=== PATIENT | male | born 1960 | race Caucasian/White ===

== ENCOUNTER 2019-11-22 13:00 | Emergency (ER) | payer BC ==
--- NOTE | 2019-11-22 14:02 | CR ---
[id number] RAD/RAD Chest PA or AP 1V EXAM: FRONTAL CHEST INDICATION: Chest heaviness. COMPARISON: None. DISCUSSION: Mild bibasilar atelectasis and infiltrates. Borderline heart size without evidence of edema. Possible apical predominant emphysema. Sternotomy. IMPRESSION: 1. Mild bibasilar infiltrates and atelectasis. Wilber Bradford MD 11/22/19 1400 Thank you for allowing us to participate in the care of your patient.
[2019-11-22 14:14] LABS: CHLORIDE,CL 108 mmol/L (98-115); SODIUM,NA 146 mmol/L (136-145)
--- NOTE | 2019-11-22 14:16 | EDM.PDOC ---
ED HPI GENERAL MEDICAL PROBLEM - General Chief Complaint: Chest Pain Stated Complaint: CHEST PAIN, SHORT OF BREATH Time Seen by Provider: 11/22/19 13:15 Source of Information: Reports: Patient History Limitations: Reports: No Limitations - History of Present Illness INITIAL COMMENTS - FREE TEXT/NARRATIVE: Patient presents with heaviness in his chest and feels like when he has A Fib or tachycardia. This started about 1130. In August he had open heart surgery for Aortic valve replacement and was told his heart and other vessels looked good at that time. No history of [place] but does have history of A Fib/RVR on a few occasions and has had cardioversions a few times (both chemical and synchronized). Recently while he was in [place] for a couple months, he saw a doctor who told him to just live with it until he came back to [place]. He started him on Eliquis then was switched to warfarin. His INR is still being checked weekly to get stabilized. - Related Data Allergies Allergy/AdvReac Type Severity Reaction Status Date / Time No Known Drug Allergies Allergy Cannot Verified 11/22/19 13:45 Remember Home Meds: Home Meds Amiodarone [Cordarone] 200 mg PO DAILY 11/22/19 [History] Amoxicillin 2,000 mg PO ASDIRECTED 11/22/19 [History] Aspirin [Aspirin EC] 81 mg PO DAILY 11/22/19 [History] Metoprolol Succinate 25 mg PO DAILY 11/22/19 [History] Sacubitril/Valsartan [Entresto 49 mg-51 mg Tablet] 1 tab PO BID 11/22/19 [History] Vitamin B Complex 1 cap PO DAILY 11/22/19 [History] Warfarin [Coumadin] 5 mg PO SUTUWETHFRSA 11/22/19 [History] ED ROS GENERAL - Review of Systems Review Of Systems: See Below Constitutional: Reports: Diaphoresis. Denies: Fever, Chills, Malaise, Weakness Respiratory: Denies: Shortness of Breath, Cough Cardiovascular: Reports: Chest Pain (heaviness for about 20 minutes that resolved quickly after ER arrival without treatment.). Denies: Lightheadedness, Syncope GI/Abdominal: Denies: Abdominal Pain, Vomiting : Reports: No Symptoms Musculoskeletal: Denies: Neck Pain, Shoulder Pain, Arm Pain, Back Pain, Hand Pain Skin: Reports: Diaphoresis. Denies: Cyanosis, Jaundice, Mottled, Pallor Neurological: Denies: Confusion, Dizziness, Headache, Seizure, Syncope, Trouble Speaking, Difficulty Walking Psychiatric: Denies: Agitation, Anxiety, Confusion ED EXAM, GENERAL - Physical Exam Exam: See Below Exam Limited By: No Limitations General Appearance: Alert, WD/WN, No Apparent Distress Eye Exam: Bilateral Eye: EOMI, Normal Inspection, PERRL Ears: Normal External Exam, Hearing Grossly Normal Nose: Normal Inspection, No Blood Throat/Mouth: Normal Inspection, Normal Lips, Normal Voice, No Airway Compromise Head: Atraumatic, Normocephalic Neck: Normal Inspection, Full Range of Motion Respiratory/Chest: No Respiratory Distress, Crackles (right base but cleared after several deep breaths). No: Rhonchi, Wheezing, Stridor Cardiovascular: Regular Rate, Rhythm (Initially was tachy with IIR but at 1330 spontaneously converted to NSR at 72 HR, while I was visiting with him.) GI/Abdominal: Normal Bowel Sounds, Soft, Non-Tender, No Organomegaly Back Exam: Normal Inspection, Full Range of Motion. No: CVA Tenderness (L), CVA Tenderness (R) Extremities: Normal Inspection, Normal Range of Motion Neurological: Alert, Oriented, Normal Cognition, No Motor/Sensory Deficits Psychiatric: Normal Affect, Normal Mood Skin Exam: Warm, Dry, Intact, Normal Color, No Rash Course - Vital Signs Last Recorded V/S: Last Vital Signs Temp 95.4 F L 11/22/19 13:20 Pulse 131 H 11/22/19 13:20 Resp 17 11/22/19 13:20 BP 129/62 11/22/19 13:20 Pulse Ox 99 11/22/19 13:20 - Orders/Labs/Meds Orders: Active Orders 24 hr Category Date Time Status EKG Documentation Completion [RC] ASDIRECTED Care 11/22/19 13:29 Active EKG Documentation Completion [RC] ASDIRECTED Care 11/22/19 14:20 Active EKG 12 Lead [EK] Stat Ther 11/22/19 13:28 Ordered EKG 12 Lead [EK] Stat Ther 11/22/19 14:17 Ordered Labs: Laboratory Tests 11/22/19 11/22/19 11/22/19 Range/Units 13:35 13:35 13:35 WBC 11.25 H (5.00-10.00) 10^3/uL RBC 4.86 (4.50-6.00) 10^6/uL Hgb 13.9 (13.0-17.0) g/dL Hct 44.3 (40.0-52.0) % MCV 91.2 (82.0-92.0) fL MCH 28.6 (27.0-31.0) pg MCHC 31.4 L (32.0-36.0) g/dL RDW 16.1 H (11.5-14.5) % Plt Count 216 (150-400) 10^3/uL MPV 9.9 (7.4-10.4) fL Immature Gran % (Auto) 0.1 (0.0-5.0) % Neut % (Auto) 70.6 H (50.0-70.0) % Lymph % (Auto) 21.6 (20.0-40.0) % [place] % (Auto) 6.1 (2.0-8.0) % Eos % (Auto) 1.2 (1.0-3.0) % Baso % (Auto) 0.4 (0.0-1.0) % Neut # (Auto) 7.95 H (2.50-7.00) 10^3/uL Lymph # (Auto) 2.43 (1.00-4.00) 10^3/uL [place] # (Auto) 0.69 (0.10-0.80) 10^3/uL Eos # (Auto) 0.13 (0.10-0.30) 10^3/uL Baso # (Auto) 0.04 (0.00-0.10) 10^3/uL Immature Gran # (Auto) 0.01 (0.00-0.50) 10^3/uL PT 12.1 H (9.2-11.2) SEC INR 1.2 H (0.9-1.1) Sodium 146 H (136-145) mmol/L Potassium 4.2 (3.3-5.3) mmol/L Chloride 108 (98-115) mmol/L Carbon Dioxide 23.2 (21.0-32.0) mmol/L Anion Gap 19.0 H (5-15) mmol/L BUN 12 (6-25) mg/dL Creatinine 1.11 (0.51-1.17) mg/dL Est Cr Clr Drug Dosing 73.99 mL/min Estimated GFR (MDRD) > 60 mL/min Glucose 70 L (75 - 99) mg/dL Calcium 9.0 (8.7-10.3) mg/dL Troponin I 0.04 (0.00-0.070) ng/mL 11/22/19 Range/Units 16:55 WBC (5.00-10.00) 10^3/uL RBC (4.50-6.00) 10^6/uL Hgb (13.0-17.0) g/dL Hct (40.0-52.0) % MCV (82.0-92.0) fL MCH (27.0-31.0) pg MCHC (32.0-36.0) g/dL RDW (11.5-14.5) % Plt Count (150-400) 10^3/uL MPV (7.4-10.4) fL Immature Gran % (Auto) (0.0-5.0) % Neut % (Auto) (50.0-70.0) % Lymph % (Auto) (20.0-40.0) % [place] % (Auto) (2.0-8.0) % Eos % (Auto) (1.0-3.0) % Baso % (Auto) (0.0-1.0) % Neut # (Auto) (2.50-7.00) 10^3/uL Lymph # (Auto) (1.00-4.00) 10^3/uL [place] # (Auto) (0.10-0.80) 10^3/uL Eos # (Auto) (0.10-0.30) 10^3/uL Baso # (Auto) (0.00-0.10) 10^3/uL Immature Gran # (Auto) (0.00-0.50) 10^3/uL PT (9.2-11.2) SEC INR (0.9-1.1) Sodium (136-145) mmol/L Potassium (3.3-5.3) mmol/L Chloride (98-115) mmol/L Carbon Dioxide (21.0-32.0) mmol/L Anion Gap (5-15) mmol/L BUN (6-25) mg/dL Creatinine (0.51-1.17) mg/dL Est Cr Clr Drug Dosing mL/min Estimated GFR (MDRD) mL/min Glucose (75 - 99) mg/dL Calcium (8.7-10.3) mg/dL Troponin I 0.06 (0.00-0.070) ng/mL Meds: Medications Discontinued Medications Generic Name Dose Route Start Last Admin Trade Name Sabino PRN Reason Stop Dose Admin Cefdinir 900 mg 11/22/19 17:59 Omnicef PO 11/22/19 18:00 ONETIME ONE Ceftriaxone Sodium 1 gm 11/22/19 14:36 11/22/19 14:50 Rocephin IVPUSH 11/22/19 14:37 1 gm ONETIME ONE Administration - Re-Assessments/Exams Free Text/Narrative Re-Assessment/Exam: 11/22/19 14:48 First EKG showed A Fib with RVR. We noticed his rate and rhythm changed on the monitor so rechecked EKG which was NSR. HR in the 70's. This has continued on monitor for over an hour now. Trop is 0.04 so will recheck that. Patient is feeling completely normal now and is okay with waiting for recheck of troponin. CXR showed small infiltrates bilat bases so will give rocephin and treat for CAP. He says he has had pneumonia three times before but most recent was 15 years ago. 11/22/19 18:00 Second troponin is 0.06 which is higher than the first but still in normal range. We discussed that this could possibly go up a bit more with a few more hours but is most likely a result of the strain from the prolonged rapid heart rate. He has been completely asymptomatic for 4.5 hours now. He wants to go home and return if any worsening. He has an appointment scheduled with his PCP Sunday morning so will follow up then. I am sending him home with Cefdinir sufficient to cover until that visit and it can be continued via his PCP then. Pt discharged to home in stable condition. Departure - Departure Time of Disposition: 17:52 Disposition: Home, Self-Care 01 Condition: Good Clinical Impression: Atrial fibrillation with RVR CAP (community acquired pneumonia) Qualifiers: Laterality: unspecified laterality Qualified Code(s): J18.9 - Pneumonia, unspecified organism Referrals: Ashanti Snider, [facility] [Primary Care Provider] - Forms: ED Department Discharge Additional Instructions: Continue your regular medications. Take the antibiotic as directed. Call your PCP on Sunday morning for recheck appointment for ER visit and to discuss your warfarin therapy as well as to prescribe continued treatment of the pneumonia. Return to an ER if worsening. Sepsis Event Note (ED) - Evaluation Sepsis Screening Result: No Definite Risk - Focused Exam Vital Signs: Vital Signs Temp Pulse Resp BP Pulse Ox 11/22/19 13:20 95.4 F L 131 H 17 129/62 99 - My Orders Last 24 Hours: My Active Orders 11/22/19 13:28 EKG 12 Lead [EK] Stat 11/22/19 13:29 EKG Documentation Completion [RC] ASDIRECTED 11/22/19 14:17 EKG 12 Lead [EK] Stat 11/22/19 14:20 EKG Documentation Completion [RC] ASDIRECTED - Assessment/Plan Last 24 Hours: My Active Orders 11/22/19 13:28 EKG 12 Lead [EK] Stat 11/22/19 13:29 EKG Documentation Completion [RC] ASDIRECTED 11/22/19 14:17 EKG 12 Lead [EK] Stat 11/22/19 14:20 EKG Documentation Completion [RC] ASDIRECTED
[2019-11-22] MEDS: cefTRIAXone 1 GM Vial IVPUSH ONE (14:50)
[2019-11-22 18:27] VITALS: BP 142/62; PULSE 52
[2019-11-22] MEDS: Cefdinir 300 MG Cap PO ONE (18:27)
== END 2019-11-22 18:15 | disposition home or self-care (01) ==
LOC: KA.ED 13:00
DX: J18.9 Pneumonia, unspecified organism (principal); I48.91 Unspecified atrial fibrillation; Z79.82 Long term (current) use of aspirin; Z79.899 Other long term (current) drug therapy; Z79.01 Long term (current) use of anticoagulants
CPT/HCPCS: 36415; 71045; 80048; 84484; 85025; 85610; 93005; 96374; 99284; 99285-25; J0696